=== PATIENT | female | born 1970 | race Caucasian/White ===

== ENCOUNTER → 2017-10-20 18:36 | Outpatient (CLI) | payer OTHER, SELFPAY ==
[2017-10-20 18:37] LABS: Bacteria 0 SEEN /hpf (None Seen); Mucous, Urine 0 SEEN /hpf (<or=2+)
[2017-10-20 19:00] LABS: Color, Urine Yellow (Yellow); Glucose, Dipstick Normal (Normal); Ketone-Dipstick Negative (Negative); Leukocyte Esterase-Dipstick 500 /ul (Negative); Nitrite-Dipstick Positive (Negative); Occult Blood-Urine 50 /ul (Negative); Protein-Dipstick 15 mg/dl (Negative); Urine Clarity Clear (Clear); Urine Urobilinogen 1 mg/dl (Normal)
[2017-10-20 19:01] LABS: Urine Bilirubin Dipstick 1 mg/dL (Negative)
[2017-10-20 19:05] LABS: Red Blood Cells-Urine 0-5 SEEN /hpf (0-5); Squamous Epithelial Cells - UA 0-5 SEEN /hpf (5-10); White Blood Cells 5-10 SEEN /hpf (0-5)
[2017-10-20 19:07] LABS: Renal Epithelial Cells 0-5 SEEN /hpf (0-5)
== END ==
PROVIDERS: Visit Provider Physician Assistant Surgical
DX: N30.00 Acute cystitis without hematuria (principal)
CPT/HCPCS: 81001; 87086; 87088; 87186

== ENCOUNTER → 2017-12-08 16:19 | Outpatient (CLI) | payer OTHER, SELFPAY | PROVIDERS: Visit Provider Physician Assistant Surgical | DX: R35.0 Frequency of micturition (principal) | CPT/HCPCS: 87086; 87088; 87186 ==

== ENCOUNTER → 2018-07-28 15:10 | Outpatient (CLI) | payer OTHER, SELFPAY ==
[2018-07-27 17:01] VITALS: BMI 25.9
--- OUTSIDE RECORDS SUMMARY | 2018-09-13 20:37 | XMS RPT_ITS ---
:1970 Author Organization OH[facility] Care Team Providers Name Role Phone Guanakito Howell Attending Unavailable Primay Care Physicia, No Referring Unavailable Dante, Guanakito Attending Unavailable Dante, Guanakito Referring Unavailable Primay Care Physicia, No Primary Care Unavailable DOCTOR, OUT OF TOWN Attending Unavailable Francesco, Nesha Primary Care Unavailable Dante, Guanakito Attending Unavailable Francesco, Nesha Referring Unavailable Francesco, Nesha Primary Care Unavailable Dante, Guanakito Attending Unavailable Dante, Guanakito Referring Unavailable Dante, Guanakito Attending Unavailable Dante, Guanakito Attending Unavailable Dante, Guanakito Referring Unavailable Primay Care Physicia, No Primary Care Unavailable Sosa, Tamar Attending Unavailable Primay Care Physicia, No Referring Unavailable PROBLEMS PROBLEMS DATE TYPE CONDITION / CODE ATTENDING STATUS SOURCE 07/28/2018 Unknown J02.9 - Acute Guanakito Howell Active [place] pharyngitis, Community unspecified / Hospital J02.9(ICD-10) Repository 07/11/2018 Unknown J32.9 - Chronic Sosa, Active [place] sinusitis, [facility] unspecified / Hospital J32.9(ICD-10) Repository 07/11/2018 Unknown B96.89 - Other Sosa, Active [place] specified [facility] bacterial agents Hospital as the cause of Repository diseases classified elsewhere / B96.89(ICD-10) 07/11/2018 Unknown J30.9 - Allergic Sosa, Active [place] rhinitis, [facility] unspecified / Hospital J30.9(ICD-10) Repository 12/08/2017 Unknown R35.0 - Frequency Guanakiot Howell Active [place] of micturition / Community R35.0(ICD-10) Hospital Repository 11/06/2017 Unknown N30.00 - Acute Guanakito Howell Active [place] cystitis without Community hematuria / Hospital N30.00(ICD-10) Repository 11/06/2017 Unknown N39.0 - Urinary Guanakito Howell Active [place] tract infection, Community site not Hospital specified / Repository N39.0(ICD-10) PROCEDURES PROCEDURES No Procedure Records FoundRESULTS RESULTS URGENT CARE VISIT Observed: 07/28/2018 Status: F Source: [place] REPORT 4:14 PM [facility] REPOSITORY [facility] [address] [place] [address] OFFICE VISIT Date of Service: 07/27/18 MR#: [id number] Acct: [id number] Name: SATURNINO SMITH Rep #: [id number] : 1970 Provider: Guanakito HAMILTON Age/Sex: 48/F Location: [facility] Status: Signed Intake Vital Signs07/27/18 Body Mass Index (BMI) 25.9 07/27/18 Height 5 ft 7 in 07/27/18 Weight: 166 lb 07/27/18 Body Mass Index (BMI) 25.9 Intake Visit Reasons: SORE THROAT Chief Complaint: cough and congestion Performance Test Engineer Required: No Accompanied by: SELF Is patient in pain?: No Allergies codeine Allergy (Severe, Verified 07/27/18 17:01) ABD PAIN cyclobenzaprine [From Flexeril] Allergy (Verified 07/27/18 17:) Unknown Medications multivitamin,an-vvra-lcfkvcwv tablet 1 tab PO QDAY 10/20/17 [History Confirmed 07/11/18] PFSH Medical History Back pain (Acute) Surgical History History of cholecystectomy (Acute) Family History Other Hypertension Social History Smoking Status: Never smoker alcohol intake: never HPI HPI Chief Complaint: cough and congestion Details: SATURNINO SMITH, is a 48 F who presents to the office today for complaint of sore throat for the past 24 hours. 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 She denies any fever, chills, sweats. No nausea, vomiting, diarrhea. No other associated symptoms or alleviating/aggravating factors. ROS Const Constitutional: No fever(s), headache(s), anorexia, chills or abnormal sleep pattern ENT ENT: Positive for sore throat; no headache(s), post nasal drip, ear pain, nasal congestion or nasal discharge Resp Respiratory: No shortness of breath Cardio Cardiology: No irregular heart rhythm or palpitations Gastro GI: No nausea/dyspepsia Neuro Neurology: No headache(s) or behavioral changes Psych Psychiatric: No abnormal sleep pattern, No behavioral changes Exam Const General: cooperative, healthy appearing HENDC Head: normal to inspection Ears: hearing grossly normal bilaterally, TM's normal bilaterally, EAC's normal Nose: external nose normal, nasal discharge clear Mouth: oral mucosae normal Throat: abnormal tonsil bilaterally Resp Effort AND Inspection: normal respiratory effort Auscultation: Bilateral: Clear to Auscultation Cardio Palpation: normal PMI Rate: regular rate Rhythm: regular rhythm Neuro General: CN's II-XI intact bilaterally, alert Psych Appearance: grossly normal Mental Status: mental status grossly normal Results BMSRAPIDSTREPA Office Rapid Strep A Negative Last Edit by Iva Leone on 07/27/18 17:15 Assessment AND Plan Problems 1. Acute pharyngitis, unspecified etiology J02.9 Status Acute Plan Rapid strep test negative today. Advised patient we will send the swab off for culture and notify her of positive results. Encouraged to get plenty of rest, drink lots of clear liquids, and use Tylenol or Ibuprofen (unless contraindicated) for fever and comfort. Patient also educated on other symptomatic management techniques. To be seen in 7-10 days if no improvement; sooner if worsening of symptoms. Patient advised of potential red flags and when appropriate to report to the ED. Patient verbalized understanding and agreement with all the above. Orders Orders: Coding Level of Care Code Off vis,est,level 3 Diagnoses Acute pharyngitis, unspecified etiology J02.9 Pharyngitis/tonsillitis etiology: unspecified etiology 07/28/18 1614 <Electronically signed by Guanakito HAMILTON> Date Guanakito HAMILTON Cosigner Signature: Date (if applicable) CC: Observed: 07/27/2018 Status: F Source: [place] CULTURE, R/O STREP A 4:[address] [facility] REPOSITORY [place] Culture No Streptococcus group A isolated. * This cultures intended use is to screen for Beta Streptococcus A only. All other pathogens and potential pathogens will not be screened for or reported. If a complete workup of all potential pathogens is indicated an order for a routine throat culture is required. Performed By: #### M100.010 #### [facility] [address] [place], [address] URGENT CARE VISIT Observed: 07/11/2018 Status: F Source: [place] REPORT 11:[address] [facility] REPOSITORY [facility] [address] [place] [address] [address] [place] [address] OFFICE VISIT Date of Service: 07/11/18 MR#: [id number] Acct: [id number] Name: SATURNINO SMITH Rep #: [id number] : 1970 Provider: ALFONSO Swan Age/Sex: 48/F Location: [facility] Status: Signed Intake Vital Signs07/11/18 Height 5 ft 7 in Intake Visit Reasons: congestion Chief Complaint: cough and congestion Allergies codeine Allergy (Severe, Verified 12/08/17 07:36) ABD PAIN cyclobenzaprine [From Flexeril] Allergy (Verified 07/11/18 10:29) Unknown Medications multivitamin,mc-xxdf-rujiuiuq tablet 1 tab PO QDAY 10/20/17 [History Confirmed 07/11/18] PFSH Medical History Back pain (Acute) Surgical History History of cholecystectomy (Acute) Family History Other Hypertension Social History Smoking Status: Never smoker alcohol intake: never HPI HPI Chief Complaint: cough and congestion Details: SATURNINO SMITH, is a 48 F who presents to the office today for 5 days of coughing with chest congestion and a tickle in her throat. She had a runny nose a few weeks before then. ?allergies. She has swollen neck glands and a head ache, that increases with coughing. Nasal drainage and PND is green/yellow. Temp has been between 99.5 to 100.2. No body aches. No shortness of breath. She has had bronchitis about once a year. No history or asthma. Nonsmoker. ROS Const Constitutional: Positive for fever(s) and headache(s); no body ache, chills, fatigue, night sweats, change in appetite, weakness, frequent falls or excessive sweating Eyes Eyes: No visual disturbances, light sensitivity, eye pain or change in vision ENT ENT: Positive for dizziness/vertigo (only if blows her nose too hard. ), nasal discharge and headache(s); no ear pain, ear discharge, hearing loss, difficulty swallowing, sore throat or neck pain Resp Respiratory: Positive for cough; no chest congestion, hemoptysis, shortness of breath or wheezing Cardio Cardiology: No shortness of breath, irregular heart rhythm, lightheadedness, chest pain at rest, chest pain with exertion, generalized swelling, orthopnea, palpitations or excessive sweating Gastro GI: No difficulty swallowing, abdominal pain, bloating, change in bowel habits, diarrhea, blood in stool, Black,tarry stools, nausea/dyspepsia or vomiting Genitourinary-Female: No burning urination, urinary frequency, urinary urgency, blood in urine or Vaginal Itching Musc Musculoskeletal: Positive for back pain (from working out in the gym); no joint pain, numbness, tingling or neck pain Skin Skin: Positive for itching (watery eyes, and sneezing); no lesions or rash Neuro Neurology: Positive for headache(s); no visual disturbances, numbness, tingling, abnormal speech, confusion, unsteady gait/balance, dizziness, weakness, frequent falls or loss of vision Psych Psychiatric: No change in appetite, No confusion, No anxiety, No depression Endo Endocrine: No fatigue, cold intolerance, excessive sweating, flushing, heat intolerance or increased thirst/drinking Aller/Imm Allergy/Immunologic: Positive for itchy eyes (watery eyes, and sneezing); no wheezing, food intolerance, seasonal allergy symptoms or hives Geoff/Lymp Hematologic/Lymphatic: No easy bruising Exam Const General: cooperative, no acute distress Orientation: alert, oriented x3 [facility]: normal to inspection, normocephalic Ears: hearing grossly normal bilaterally, external ears normal, TM normal on the right, no periauricular adenopathy, EAC's normal, TM abnormal (left ) dull and wth effusion Nose: mucous membranes and turbinates abnormal boggy and erythematous, nasal discharge purulent and other (white) Face and sinus: sinuses nontender Mouth: oral mucosae normal, oropharynx normal, tongue normal Teeth and gingiva: dentition normal, gingiva normal Throat: posterior oropharynx abnormal, postnasal drainage (white) Eyes General: appearance normal, both eyes and all related structures Visual Be: normal visual be by confrontation Eyelids: eyelids normal Conjunctivae: conjunctivae normal Sclera: sclerae normal Pupils: PERRL EOM: EOM intact bilaterally Direct ophthalmoscopy: normal light reflex, no photophobia Neck Neck: normal visual inspection, no meningeal signs, supple, no lymphadenopathy Neck mass: No Thyroid: thyroid normal Carotids: no bruits Lymphatic: no lymphadenopathy noted Chest Chest palpation AND inspection: normal inspection of the chest Resp Effort AND Inspection: normal respiratory effort, able to speak in complete sentences, symmetric chest movement, no audible wheezes, not labored, no respiratory distress Auscultation: Bilateral: Clear to Auscultation Cardio Rate: regular rate Rhythm: regular rhythm Heart Sounds: S1 normal, S2 normal GI Inspection: normal to inspection Auscultation: normal bowel sounds Palpation: soft, no hepatosplenomegaly, no pulsatile masses Musc Musculoskeletal: No joint tenderness or joint redness Skin General: no rashes or lesions noted Neuro General: alert, oriented x3, moves all extremities Cognition: normal cognition Speech: speech normal Gait: normal gait Motor: muscle tone normal throughout Sensory Exam: no sensory deficits noted Extrem General: normal to inspection Psych Appearance: grossly normal, well kempt Mental Status: mental status grossly normal Affect: normal affect Speech and Movement: speech and movement normal Attitude: cooperative Thought Process: normal Thought Content: normal Judgment: judgment good Assessment AND Plan Problems 1. Sinusitis, bacterial J32.9; B96.89 2. Allergic rhinitis due to allergen J30.9 Plan Amoxil 875mg bid x 10 days, Astelin nasal spray, and Prednisone 30mg x 2 days called to Lisa Levine, \. To ER if develops high fever, SOB F/u with PCP if symptoms persist more than 3-5 more days. Coding Level of Care Code Off vis,est,level 3 Diagnoses Sinusitis, bacterial J32.9; B96.89 Allergic rhinitis due to allergen J30.9 07/11/18 1106 <Electronically signed by Tamar HAMILTON> Date Tamar Urrutia Signature: Date (if applicable) CC: Observed: 12/08/2017 Status: F Source: [place] CULTURE, URINE 5:[address] [facility] REPOSITORY Urine Culture ORGANISM 1: Presumptive E. coli [place] Count >100,000 Presumptive E. coli: REACTION Amoxacillin/Clavulanic Acid $ <=2 S Ampicillin $ <=2 S Ampicillin/Sulbactam $ <=2 S Cefazolin $ <=4 S Cefepime $ <=1 S Ceftriaxone $ <=1 S Ciprofloxacin $ <=0.25 S ESBL - Ertapenim $$$ <=0.5 S Gentamicin $ <=1 S Imipenem *NF <=0.25 S Levofloxacin $ <=0.12 S Nitrofurantoin $ <=16 S Piperacillin/Tazobactam $$ <=4 S Tobramycin $ <=1 S Trimethoprim/Sulfametho $ <=20 S (NF) indicates non-formulary drug at [facility]. Approval by Infectious Disease Specialist required before non-formulary drugs may be ordered and/or dispensed. Performed By: #### M100.0650 #### [facility] [address] [place], [place], [address] URGENT CARE VISIT Observed: 12/08/2017 Status: F Source: [place] REPORT 8:[address] [facility] REPOSITORY [facility] [address] [place] [id number] OFFICE VISIT Date of Service: 12/08/17 MR#: [id number] Acct: [id number] Name: SATURNINO SMITH Rep #: [id number] : 1970 Provider: Guanakito HAMILTON Age/Sex: 47/F Location: [facility] Status: Signed Intake Vital Signs12/08/17 Height 5 ft 7 in 12/08/17 Weight: 158 lb 12/08/17 Body Mass Index (BMI) 24.7 12/08/17 Blood Pressure 114/68 Intake Visit Reasons: Urinary tract infection Performance Test Engineer Required: No Is patient in pain?: No Allergies codeine Allergy (Severe, Verified 12/08/17 07:36) ABD PAIN Medications multivitamin,vo-cngz-cbwbtovh tablet 1 tab PO QDAY 10/20/17 [History Confirmed 12/08/17] PFSH Social History Smoking Status: Never smoker alcohol intake: never HPI HPI Details: SATURNINO SMITH, is a 47 F who presents to the office today for concern for UTI. Patient states that 2 days ago she started have burning and increased frequency of urination. She does report having a UTI 6 weeks ago with similar type symptoms. She has had no hematuria or loss of bowel or bladder. No fever, chills, sweats. No nausea, vomiting, diarrhea. No other associated symptoms or alleviating/aggravating factors. ROS Const Constitutional: No body ache, chills or fever(s) Resp Respiratory: No shortness of breath Cardio Cardiology: No lightheadedness, palpitations or irregular heart rhythm Gastro GI: No abdominal pain Genitourinary-Female: Positive for burning urination, painful urination and urinary frequency; no pelvic pain, painful intercourse or blood in urine Neuro Neurology: No confusion or behavioral changes Psych Psychiatric: No confusion, No behavioral changes Exam Const General: cooperative, healthy appearing Resp Effort AND Inspection: normal respiratory effort Auscultation: Bilateral: Clear to Auscultation Cardio Rate: regular rate Rhythm: regular rhythm GI Auscultation: normal bowel sounds General: No CVA tenderness Psych Appearance: grossly normal Mental Status: mental status grossly normal Results BMSUA Office Urine Color Yellow Last Edit by Iva Leone on 12/08/17 07:38 Assessment AND Plan 1. Acute cystitis without hematuria N30.00 Plan Macrobid as prescribed today. Encouraged to get plenty of rest, drink lots of clear liquids, and use Tylenol or Ibuprofen (unless contraindicated) for fever and comfort. Patient also educated on other symptomatic management techniques. To be seen in 7-10 days if no improvement; sooner if worsening of symptoms. Patient advised of potential red flags when appropriate report to the ED. Patient verbalized understanding of all the above. This note was generated with [employer]ation software. It may contain incorrect words, spelling, and punctuation that were not noted in checking the note before signing. Plan Detail Other Orders Orders: Coding Level of Care Code Off vis,est,level 3 Diagnoses Acute cystitis without hematuria N30.00 Urinary tract infection type: acute cystitis Hematuria presence: without hematuria 12/08/17 0800 <Electronically signed by Guanakito HAMILTON> Date Guanakito HAMILTON Cosigner Signature: Date (if applicable) CC: URINALYSIS, COMPLETE Collected: 10/20/2017 Status: F Source: [facility] 6:[address] [facility] REPOSITORY Order Comment: How was Urine Obtained? WOMENS [employer]LEY[employer] COACH TO SPECIFY TYPE CODE TESTS RESULT OUT OF RANGE REFERENCE UNITS LAB L400.3000 Yellow COLOR Normal Yellow LAB L400.3050 Clear Normal CLARITY Clear LAB L400.3200 Normal mg/dl Normal GLUCOSE, UR Normal LAB L400.3300 Negative mg/dL High BILIRUBIN URINE 1 Result Comment: COLOR OF URINE MAY AFFECT DIPSTICK RESULTS. LAB L400.3400 Negative mg/dl Normal KETONE UR Negative LAB L400.3465 1.002-1.030 Normal SP.GR. DIPSTX 1.010 LAB L400.3550 5.0 - 8.0 pH Normal UR 8.0 LAB L400.3600 Negative mg/dl High PROT DIPSTX 15 LAB L400.3700 Normal mg/dl High UROBILI 1 LAB L400.3750 Negative High NITRITE UR Positive LAB L400.3780 Negative /ul High OCCULT 50 BLOOD-UR LAB L400.3800 Negative /ul High LEUK ESTERASE 500 LAB L400.4050 0-5 /hpf Normal WBC 5-10 SEEN LAB L400.4100 0-5 /hpf Normal RBC-UA 0-5 SEEN LAB L400.4150 5-10 /hpf Normal SQUAM EPI 0-5 SEEN LAB L400.4300 None Seen /hpf Normal BACTERIA 0 SEEN LAB L400.4350 <or=2+ /hpf Normal MUCUS, URINE 0 SEEN LAB L400.4250 0-5 /hpf Normal RENAL EPI 0-5 SEEN Performed By: #### L400.0001, M100.0650 #### [facility] [address] [place], [address] Observed: 10/20/2017 Status: F Source: [place] CULTURE, URINE 6:[address] [facility] REPOSITORY Urine Culture ORGANISM 1: Presumptive E. coli [place] Count >100,000 Presumptive E. coli: REACTION Amoxacillin/Clavulanic Acid $ <=2 S Ampicillin $ <=2 S Ampicillin/Sulbactam $ <=2 S Cefazolin $ <=4 S Cefepime $ <=1 S Ceftriaxone $ <=1 S Ciprofloxacin $ <=0.25 S ESBL - Ertapenim $$$ <=0.5 S Gentamicin $ <=1 S Imipenem *NF <=0.25 S Levofloxacin $ <=0.12 S Nitrofurantoin $ <=16 S Piperacillin/Tazobactam $$ <=4 S Tobramycin $ <=1 S Trimethoprim/Sulfametho $ <=20 S (NF) indicates non-formulary drug at [facility]. Approval by Infectious Disease Specialist required before non-formulary drugs may be ordered and/or dispensed. Performed By: #### L400.0001, M100.0650 #### [facility] [address] [place], [place], [address] URGENT CARE VISIT Observed: 10/20/2017 Status: F Source: [facility] REPORT 7:[address] [facility] REPOSITORY [facility] [address] [place] [address] [address] [place] [address] OFFICE VISIT Date of Service: 10/20/17 MR#: [id number] Acct: [id number] Name: SATURNINO SMITH Rep #: [id number] : 1970 Provider: Guanakito HAMILTON Age/Sex: 47/F Location: [facility] Status: Signed Intake Vital Signs10/20/17 Height 5 ft 7 in 10/20/17 Weight: 158 lb 10/20/17 Body Mass Index (BMI) 24.7 10/20/17 Blood Pressure 118/76 Intake Visit Reasons: Urinary tract infection Performance Test Engineer Required: No Is patient in pain?: No Allergies codeine Allergy (Severe, Verified 10/20/17 07:24) ABD PAIN Medications multivitamin,eu-obxj-mdlfjfsm tablet 1 tab PO QDAY 10/20/17 [History Confirmed 10/20/17] nitrofurantoin monohydrate/macrocrystals 100 mg capsule 1 cap PO Q12H 7 Days #14 cap 10/20/17 [Rx Confirmed 10/20/17] HPI HPI Details: SATURNINO SMITH, is a 47 F who presents to the office today for urinary frequency and dysuria for the past 2 days. Patient states that she awoke 2 days ago with dysuria and has since had increased urinary frequency/urgency. She denies any hematuria or loss of bowel/bladder. No fever, chills, sweats. No nausea, vomiting, diarrhea. Patient has taken Azo for the dysuria which she states has helped. No other associated symptoms or alleviating/aggravating factors. ROS Const Constitutional: No body ache, chills or fever(s) Resp Respiratory: No shortness of breath Cardio Cardiology: No lightheadedness, palpitations or irregular heart rhythm Gastro GI: No abdominal pain Genitourinary-Female: Positive for burning urination, painful urination and urinary frequency; no pelvic pain, painful intercourse or blood in urine Neuro Neurology: No confusion or behavioral changes Psych Psychiatric: No confusion, No behavioral changes Exam Const General: cooperative, healthy appearing Resp Effort AND Inspection: normal respiratory effort Auscultation: Bilateral: Clear to Auscultation Cardio Rate: regular rate Rhythm: regular rhythm GI Auscultation: normal bowel sounds General: No CVA tenderness Neuro General: alert, CN's II-XI intact bilaterally Psych Appearance: grossly normal Mental Status: mental status grossly normal Assessment AND Plan 1. Acute cystitis without hematuria N30.00 Status Acute Plan Encouraged to get plenty of rest, drink lots of clear liquids, and use Tylenol or Ibuprofen (unless contraindicated) for fever and comfort. Patient also educated on other symptomatic management techniques. To be seen in 7-10 days if no improvement; sooner if worsening of symptoms. Patient advised of potential red flags when appropriate report to the ED. Patient verbalized understanding of all the above. This note was generated with [employer]ation software. It may contain incorrect words, spelling, and punctuation that were not noted in checking the note before signing. Orders Orders: Plan Detail Other Orders Orders: Other Medications New: nitrofurantoin monohyd/m-cryst 100 mg administer with a meal1 cap PO Q12H 7 days N39.0 /food; swallow whole; do not open, crush, dissolve , or chew Coding Level of Care Code Off vis,est,level 3 Diagnoses Acute cystitis without hematuria N30.00 Urinary tract infection type: acute cystitis Hematuria presence: without hematuria 10/20/17 0737 <Electronically signed by Guanakito HAMILTON> Date Guanakito HAMILTON Cosigner Signature: Date (if applicable) CC: ALLERGIES ALLERGIES DATE TYPE / CODE NAME / CODE REACTION SEVERITY SOURCE 07/27/2018 Drug codeine/F006 ABD PAIN SV [facility] Allergy/4160 130294([facility]NOR Hospital 06761(SNOMED M) Repository CT) 07/27/2018 Drug cyclobenzapr Unknown Unknown [facility] Allergy/4160 ine/[id number] Hospital 22780(SNOMED 80(RXNORM) Repository CT) ENCOUNTERS ENCOUNTERS ADMIT/DISCHARGE ACCOUNT ADMITTING ENCOUNTER LOCATION SOURCE NUMBER CLASS 07/28/2018 [id number] Ambulatory [place] 1 [facility] ing:LABSPEC Repository 07/27/2018/ [id number] Ambulatory BMSBuilding:B [place] 8 7 [place] Repository 07/11/2018/ [id number] Ambulatory BMSBuilding:B [place] 8 0 [place] Repository 02/26/2018 [id number] Ambulatory [place] 9 [facility] ing:MASS Repository 12/08/2017 [id number] Ambulatory [facility] 7 [facility] ing:LABSPEC Repository 12/08/2017/ [id number] Ambulatory BMSBuilding:B [place] 8 4 [place] Repository 10/20/2017 [id number] Ambulatory [place] 9 [facility] ing:LABSPEC Repository 10/20/2017/ [id number] Ambulatory BMSBuilding:B [place] 8 1 [place] Repository PAYERS PAYERS ENCOUNTER GUARANTOR PAYER SUBSCRIBER SOURCE 07/28/2018 LJ Leone Primary SATURNINOASHLIE [place] [id number] Insurance:MEDICAL RATLIFFDOB: [facility] [id number] Number: Repository [address]Nfb: [phone] [id number] [id number] () Date:[id number] [place] [id number]: 07/28/2018 Secondary NOT GIVENUNK [place] Insurance:SELF PAY [facility] Number: Effective Repository Date:2018-07-28 07/27/2018 Lj Leone Primary SATURNINOASHLIE Levine [id number] Insurance:MEDICAL RATLIFFDOB: [facility] [id number] Number: Repository [id number]: 330 [id number] () Date:[id number] [address] [address]QN: 07/27/2018 Secondary NOT GIVENUNK [place] Insurance:SELF PAY [facility] Number: Effective Repository Date:2018-07-27 07/11/2018 Lj Leone Primary SATURNINOASHLIE Levine [id number] Insurance:MEDICAL RATLIFFDOB: [facility] [id number] Number: Repository [id number]: 330 [id number] [phone] (HP) Date:2239-13-90VY [address] [address]CS: 07/11/2018 Secondary NOT GIVENUNK [place] Insurance:SELF PAY [facility] Number: Effective Repository Date:2018-07-11 02/26/2018 Lj P Primary NOT GIVENUNK [place] [id number] Insurance:SELF PAY [place], [place] Number: Effective Repository [id number]: ([phone] Date:[phone] (HP) 12/08/2017 Lj P Primary SATURNINO Abner [id number] Insurance:MEDICAL RATLIFFDOB: [facility] [id number] Number: Repository [id number]: 330 [id number] [phone] (HP) Date:[id number] [address] [address]VL: 12/08/2017 Secondary NOT GIVENUNK Abner Insurance:SELF PAY [facility] Number: Effective Repository Date:2017-12-08 12/08/2017 Lj P Primary SATURNINO [place] [id number] Insurance:MEDICAL RATLIFFDOB: [facility] [id number] Number: Repository [id number]: 330 [id number] [phone] (HP) Date:[id number] [address] [address]LB: 12/08/2017 Secondary NOT GIVENUNK [place] Insurance:SELF PAY [facility] Number: Effective Repository Date:2017-12-08 10/20/2017 Lj P Primary SATURNINO [place] [id number] Insurance:MEDICAL RATLIFFDOB: [facility] [id number] Number: Repository [id number]: 330 [id number] [phone] (HP) Date:[id number] [address] [address]GY: 10/20/2017 Secondary NOT GIVENUNK Abner Insurance:SELF PAY [facility] Number: Effective Repository Date:2017-10-20 10/20/2017 Lj Leone Primary SATURNINO [place] [id number] Insurance:MEDICAL RATLIFFDOB: [facility] [id number] Number: Repository [id number]: [phone] [id number] [phone] () Date:3947-76-47FV [address] [place] [address]HF: 10/20/2017 Secondary NOT GIVENUNK [place] Insurance:SELF PAY [facility] Number: Effective Repository Date:2017-10-20
== END ==
PROVIDERS: Referring Provider Physician Assistant Surgical; Visit Provider Physician Assistant Surgical
DX: J02.9 Acute pharyngitis, unspecified (principal)
CPT/HCPCS: 87081

== ENCOUNTER 2024-01-18 08:01 | Day surgery (SDC) | payer OTHER, SELFPAY ==
--- NOTE | 2024-01-17 22:24 | HP.PCM_ITS ---
History and Physical Date of Admission: 01/18/24 HISTORY OF PRESENT ILLNESS 53 year old female presents for evaluation of a soft tissue mass on her central forehead that she first noticed a year ago. It has enlarged in size over the last several months. She denies trauma. She denies fever. She denies recent infection. She denies headaches. She states that it is a little painful when bumped. She comes in today for further evaluation and treatment. PAST MEDICAL HISTORY Acute conjunctivitis, left eye Acute pharyngitis, unspecified Back pain Dysesthesia Earache, right Elective procedure for unacceptable cosmetic appearance Glabellar wrinkles Localized swelling, mass, and lump of head URI (upper respiratory infection) PAST SURGICAL HISTORY History of cholecystectomy ALLERGIES codeine cyclobenzaprine [From Flexeril] tramadol MEDICATIONS None. FAMILY HISTORY Hypertension SOCIAL HISTORY Smoking Status: Never smoker alcohol intake: never REVIEW OF SYSTEMS General - Denies fever and weight loss. Has a history of fatigue. Eyes - Denies cataracts and glaucoma. She wears glasses. ENT - Denies nasal congestion and sore throat. Endocrine - Denies excessive thirst and urination. History of breast cyst. Skin - Denies skin cancer. Has an enlarging soft tissue mass on her central forehead. Denies family history of skin cancer. Musculoskeletal - Denies joint stiffness, weakness of muscles and joints, and arthritis. States she has some joint pain and back pain. Neuro - History of headaches/migraines. Cardiovascular - Denies chest pain, fatigue, and shortness of breath with exertion. Psych - History of anxiety. Denies depression. Respiratory - Denies chronic cough and shortness of breath. Gastrointestinal - Denies nausea, vomiting, diarrhea, and constipation. History of gallstones and had a cholecystectomy 1998. Hematologic - Denies abnormal bruising and bleeding. Genitourinary - Denies hematuria and urinary frequency. History of urinary tract infections. PHYSICAL EXAMINATION General - Alert and oriented. HEENT - PERRL. EOMI. Throat is clear. On her central forehead is a soft tissue mass that measures 0.4 cm. It is mobile. It has mild tenderness when bumped. No evidence of infection. Has glabellar wrinkles. The glabellar muscles are or iented horizontally. No other suspicious lesions noted. Neck - Supple and non-tender. No cervical adenopathy. No suspicious lesions noted. Lungs- Clear to auscultation. Heart - Regular rate and rhythm. Abdomen - Soft and non distended. Extremities - FROM. No axillary adenopathy. Radial pulses are palpable. No suspicious lesions noted. Neuro - CN II-XII grossly intact. Psych - Normal mood and affect. ASSESSMENT 1. 0.4 cm painful soft tissue mass central forehead. 2. Glabellar wrinkles. PLAN Patient has a painful soft tissue mass central forehead that has increased in size over the past several months. She denies trauma. She denies headaches. She denies recent infection. It is recommended to have this soft tissue mass excised before it enlarges some more and becomes infected. Also as it enlarges, it can cause headaches because of pressure on the underlying muscle. It is common that these soft tissue masses are located in a submuscular location. Surgery can be done under local anesthesia on an outpatient basis. Tissue that is removed will be sent to Pathology for analysis to rule out carcinoma. Patient was informed of the risks and complications of the procedure including alternatives to surgery. These were discussed with the patient personally. Patient voices understanding and wishes to proceed. Potential risks and complications included but not inclusive of bleeding, infection, hematoma, bruising, swelling, loss of sensation to skin, wound breakdown, need for wound care, poor scarring, poor aesthetic outcome, intra operative cardiac or neurologic events, DVT, PE, and reaction to anesthesia. Patient also has some concerns about glabellar wrinkles. Botox will be beneficial in improving the wrinkles in this area. Will discuss it further after the soft tissue mass incision has healed. Assessment & Plan Assessment/Plan (1) Localized swelling, mass, and lump of head: (2) Dysesthesia: (3) Glabellar wrinkles:
[2024-01-18] MEDS: Lactated Ringers 1,000 ML 15 ML IV (08:42)
[2024-01-18 08:43] VITALS: BP 126/88; PULSE 79; RESP 16; TEMP 37.1; O2SAT 98; BMI 25.9
--- NOTE | 2024-01-18 09:30 | TISS_PTH ---
PATIENT: SATURNINO SMITH LOC: [facility] [place] U#:[id number] AGE/SX: 53/F ROOM: RE01/18/[address]: Dr. Mc Hebert MD : 1970 BED: DIS: 01/18/2024 SPEC #: [id number] RECD: 01/18/24 13:05 STATUS: TACOS HAIDER #: [id number] MAE: 01/18/24 09:[address]: Mc Hebert DEPT: SURGICAL PATHOLOGY RECD BY: Moise Phan ENTERED: 01/18/24 13:29 SP TYPE: Tissue Bx OT DR: Trixie Primary Care Phys Tissues: Skin of forehead Procedures: Decalcification bone/plaque Surgery Specimen Level IV HEADER OPERATION: Excision painful soft tissue mass central forehead PRE-OP DIAGNOSIS: Painful soft tissue mass central forehead TISSUE SUBMITTED: Soft tissue mass central forehead MICROSCOPIC DIAGNOSIS Soft tissue mass central forehead, excision: A piece of benign dense fibroconnective tissue, skeletal muscle tissue and adipose tissue. Negative for malignancy. See comment. / 01/20/2024 COMMENT Correlation with clinical findings and appropriate follow up are necessary. MICROSCOPIC DESCRIPTION Slides are reviewed. GROSS DESCRIPTION Received in fixative is one container labeled with the patient's name and designated Soft tissue mass central forehead. The specimen consists of a piece of portillo indurated tissue measuring 0.5 x 0.3 x 0.2cm. The entire specimen is submitted in one cassette after decalcification. / 01/18/2024 TC:5 CPT:28834,73168
[2024-01-18] MEDS: Clindamycin 900 MG/50 ML BAG 75 MG IV (10:47)
[2024-01-18] MEDS: Lidocaine 1% /Epi 1:100 (20ml) 20 ML Vial (11:25)
[2024-01-18] MEDS: Bacitracin 500 UNITS/GM PACKET (11:39)
--- NOTE | 2024-01-18 11:43 | OP.PCM_ITS ---
Problems Associated Problem List Diagnoses (1) Localized swelling, mass, and lump of head: (2) Dysesthesia: (3) Glabellar wrinkles: Report of Operation Date of Procedure: 01/18/24 Pre-Operative Diagnosis: 1. 0.4 cm painful soft tissue mass central forehead. 2. Glabellar wrinkles. Post-Operative Diagnosis: 1. 0.4 cm painful submuscular soft tissue mass central forehead. 2. Glabellar wrinkles. Surgery/Procedure Performed:: Excision 0.4 cm painful submuscular soft tissue mass central forehead with 1.1 cm complex closure. Description of Surgical Findings:: 53 year old female presents for evaluation of a soft tissue mass on her central forehead that she first noticed a year ago. It has enlarged in size over the last several months. She denies trauma. She denies fever. She denies recent infection. She denies headaches. She states that it is a little painful when bumped. She comes in today for further evaluation and treatment. Patient was informed of the risks and complications of the procedure including alternatives to surgery. These were discussed with the patient personally. Patient voices understanding and wishes to proceed. Some of the risks and complications were included in a form from the [employer] [place] [employer]. Potential risks and complications included but not inclusive of bleeding, infection, hematoma, bruising, swelling, loss of sensation to skin, wound breakdown, need for wound care, poor scarring, poor aesthetic outcome, intra operative cardiac or neurologic events, DVT, PE, and reaction to anesthesia. Surgeon: Mc Hebert MD slot floor attendant: None Type of Anesthesia: Local MAC (xylocaine with epinephrine and IV sedation.) Anesthesiologist: Quinn Yanez MD and Nimco Barth CRNA Specimen's removed: Painful submuscular mass central forehead to Pathology. Drains: none. Estimated Blood Loss (mL): 2. Description of Procedure: Patient was taken to OR in supine position and was given IV sedation. The forehead was prepped and draped in the usual fashion. SCD's were placed for DVT prophylaxis. Perioperative antibiotics were given intravenously. The soft tissue mass central forehead was infiltrated with xylocaine and epinephrine. After waiting 5 minutes for the anesthetic to take effect, I made a horizontal incision over the soft tissue mass. I dissected into the subcutaneous tissue. Frontalis muscle was seen and a small bulge was noted underneath the muscle. I the muscle in a longitudinal fashion which exposed the soft tissue mass. The mass was dissected at the level of the periosteum. The mass was not adherent to the periosteum. After the mass was excised, it was sent to Pathology for analysis to rule out carcinoma. Hemostasis was obtained with electrocautery. The wound was irrigated with saline. The wound was closed in a multilayered complex closure. 5-0 Monocryl figure of eight interrupted sutures were used to approximate the underlying muscle layer. The deep dermis and subcutaneous tissue was approximated with 5-0 Monocryl interrupted sutures. The skin was approximated with 6-0 Prolene simple interrupted sutures. Steri-strips were applied followed by antibiotic ointment and a small Op-site dressing. The length of the complex closure was 1.1 cm. Patient tolerated the procedure well and was sent to PACU in satisfactory condition. Patient will be sent home on antibiotics and pain medication. She will keep her head elevated during the initial postoperative period. Patient will followup in a week for a wound check and for discussion of the pathology report and for removal of the sutures. Grafts/Implants Used: None. Procedure Start Time: 11:13 Procedure Stop Time: 11:40 Complications None. Admit VTE Documentation VTE Present on Admission: No VTE Mechan Device Prophylaxis: SCD's VTE Pharm Prophylaxis ordered?: No Addendum Addendum: Surgery Charges CPT - 58451 ICD-10 - R22.0, R20.8, L98.8 81709 R22.0, R20.8, L98.8
--- NOTE | 2024-01-18 11:46 | PCM.DC ---
Discharge Instructions Diet Discharge Diet: No restrictions Activity Discharge Activity: May Drive (when not taking pain medication.), May Shower (in two days.) and - (keep head elevated. no heavy lifting.) May resume sexual activity in: No Restrictions Ice area for (Minutes): 5 (as needed for facial swelling.) Weight Bearing Status: Weight bearing as tolerated Lifting Restrictions: 20. Keep extremity elevated above heart level: - (elevate head.) Dressing / Incision Call your doctor if your incision/area has: Continuous Slow Oozing, Sudden Increased Bleeding, Increased Pain/ Swelling, Increased Redness, Foul Smelling Discharge and Swelling at the incision site Call your doctor if you observe: Fever of 101 or Higher, Coldness, Increased Pain, Shortness of breath, Chest pain, Calf discomfort and Uncontrolled pain Remove Dressing in: 2 days (may cover the incision with a band aid when outside or can leave the steri-strips exposed. may remove the steri-strips if they start to loosen.) Cleanse incision/area with: Soap & Water (may get the incision wet in the shower in two days.) Follow Up Care Please Follow Up With: Mc Hebert MD When: one week. Test Results: Test results from this visit will be discussed in further detail at your follow-up appointment, if applicable. Discharge Plan Admission Primary Reason for Your Visit: excision painful submuscular soft tissue mass central forehead Attending Provider: Mc Hebert Primary Care Provider: Care Physician,No Primary Instructions Print Language: Kiswahili Discharge Orders/Prescriptions Prescriptions: New clindamycin HCl [Cleocin HCl] 300 mg capsule 300 mg PO TID Qty: 12 0RF L.acidoph,saliva-B.bif-S.therm [Acidophilus Probiotic Blend] 175 mg capsule 1 cap PO DAILY Qty: 10 0RF oxycodone-acetaminophen [Percocet] 5-325 mg tablet 1 tab PO TID PRN (Reason: pain (scale score 7-10)) 5 Days Qty: 15 0RF Rx Instructions: 15 tabs (fifteen) Continued multivitamin,bs-tfav-wgtxnkyv [Complete Multivitamin] tablet 1 tab PO QDAY escitalopram oxalate [Lexapro] 20 mg tablet 20 mg PO DAILY magnesium 250 mg tablet 500 mg PO DAILY calcium carb and citrate-vitD3 [Citracal-D3 Slow Release] 600 mg-12.5 mcg (500 unit) tablet extended release 1 tab PO DAILY jk-9-mqo-epa-fish oil-vit D3 [Fish Oil-Vit D3] 300-1,000-1,000 mg-mg-unit capsule 1 cap PO DAILY evening primrose oil 500 mg capsule 1,000 mg PO DAILY Rx Instructions: give with meal/snack Referrals / Follow Up: Mc Hebert MD [Med Staff - Active Staff] - In 1 Week Care Physician,No Primary [Primary Care Provider] - Disposition Disposition (needs filled in before D/C Order can be placed): Home, Self Care
[2024-01-18 11:50] VITALS: BP 115/75; BP 126/88; PULSE 65; RESP 18; TEMP 36.4; O2SAT 98
[2024-01-18 11:55] VITALS: BP 119/78; BP 126/88; PULSE 63; RESP 16; O2SAT 98
[2024-01-18 12:00] VITALS: BP 119/80; BP 126/88; PULSE 64; RESP 16; TEMP 36.9; O2SAT 97
[2024-01-18 12:26] VITALS: BP 126/88
== END 2024-01-18 12:45 | disposition home or self-care (01) ==
LOC: SDC 08:08 → AC 08:09
PROVIDERS: Referring Provider Surgery; Visit Provider Surgery
PROC: (CPT 21013; principal; 2024-01-18 09:15)
DX: R22.0 Localized swelling, mass and lump, head (principal); F41.9 Anxiety disorder, unspecified; Z79.899 Other long term (current) drug therapy
CPT/HCPCS: 21013; 13131; 00300; 88305; 88311

== ENCOUNTER 2025-08-03 18:02 | Emergency (ER) | payer OTHER, SELFPAY ==
[2025-08-03 18:04] VITALS: BP 167/80; PULSE 105; RESP 16; TEMP 36.6; O2SAT 98; BMI 23.8
[2025-08-03 18:43] VITALS: BP 142/91; PULSE 94; RESP 16; O2SAT 98
--- NOTE | 2025-08-03 18:54 | EKG12_ITS ---
Test Reason : palps Blood Pressure : */* mmHG Vent. Rate : 90 BPM Atrial Rate : 90 BPM P-R Int : 142 ms QRS Dur : 86 ms QT Int : 374 ms P-R-T Axes : 74 84 -9 degrees QTcB Int : 457 ms Normal sinus rhythm Right atrial enlargement Cannot rule out Inferior infarct , age undetermined T wave abnormality, consider lateral ischemia Abnormal ECG Confirmed by Maik Fowler ([id number]), editor dictionary WO[employer] LOVE ([id number]) on 08/04/2025 10:38:50 AM Referred By: Confirmed By: Maik Fowler
--- NOTE | 2025-08-03 18:55 | EDS_ITS ---
HPI History of Present Illness Chief Complaint: Anxiety Informant: patient and spouse/S.O. Narrative Narrative: 55-year-old female presenting to the emergency room with palpitations nausea and not feeling well. Patient states she got up this morning. She did take a couple Excedrin. She did [employer] pizza for lunch. She states that shortly after she began to feel unwell. She states a little bit of nausea this felt some palpitations with her heart racing. She states she does not have body aches or fever. No significant cough. No diarrhea. She states that she has had anxiety in the past but not for a long time. She states she did not sleep well last night despite taking some trazodone. She is also on a GLP-1. Patient notes no rashes. She denies any pain. No DVT PE risk factors. PFSH PFS Medical History Wears glasses Anxiety Dysesthesia Localized swelling, mass, and lump of head Glabellar wrinkles Back pain Home Medications ?Medication ?Instructions ?Recorded ?Last Taken ?Type semaglutide (weight loss) 0.5 0.5 mg subcut QWEEK 12/0907/30/25 History mg/0.5 mL subcutaneous pen injector trazodone 50 mg tablet 25 mg (1/2 x 50 mg) PO QHS P RN 07/20/25 08/02/25 Rx insomnia #30 tabs zdwxiad-yhstiijjflwme-ymtghrqe 250 2 tab PO Q6H PRN pa in 08/03/25 08/03/25 History mg-250 mg-65 mg tablet (Excedrin Extra Strength) lorazepam 0.5 mg tablet (Ativan) 0.5 mg PO BID PRN anx iety #6 tabs 08/03/25 Unknown Rx ondansetron 4 mg disintegrating 4 mg PO Q6H PRN PRN Na usea #15 tabs 08/03/25 Unknown Rx tablet Allergy/AdvReac Type Severity Reaction Status Date / Time codeine Allergy Severe ABD PAIN Verified 08/03/25 18:05 cyclobenzaprine (From Allergy Unknown Verified 08/03/25 18:05 Flexeril) tramadol Allergy PT UNABLE Verified 08/03/25 18:05 TO RESPOND-NEEDS F/U Family History Father Multiple myeloma Hypertension Mother Hypertension Surgical History Elective procedure for unacceptable cosmetic appearance History of excision of mass History of cholecystectomy Social History adopted: No household members: spouse current occupational status: employed 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 current occupational exposures/hazards: No Smoking Status: Never smoker alcohol intake: never substance use type: does not use what type of physical activity do you participate in: none seatbelt use: always do you feel safe at home: Yes ROS ROS ED Constitutional Constitutional ED: Reports chills; Denies fever(s) or weight loss Eyes Eyes: Denies change in vision or diplopia ENT ENT ED: Denies ear pain, rhinorrhea or sore throat Cardiovascular Cardiovascular: Reports palpitations and racing heartbeat; Denies chest pain or orthopnea Respiratory/Chest Respiratory/Chest: Denies cough, dyspnea or orthopnea Gastrointestinal Gastrointestinal: Reports nausea; Denies abdominal pain, diarrhea or vomiting Genitourinary Genitourinary ED: Denies dysuria, hematuria or urinary frequency Musculoskeletal Musculoskeletal: Denies arthralgias or myalgias Integumentary Denies abscess or rash Neurologic Neurologic: Denies headache(s) or weakness Psychiatric Psychiatric: Denies anxiety, depression, suicidal ideation or suicidal thoughts Endocrine Endocrinology: Denies polydipsia, polyphagia or polyuria Allergic/Immunologic Allergic/Immunologic ED: Denies mouth swelling, tongue swelling or urticaria EXAM Physical Exam Const Vital Signs: 08/03/25 18:04 08/03/25 18:35 08/03/25 18:43 Temperature 97.9 F Temperature Source Temporal Pulse Rate 105 H 94 Respiratory Rate 16 16 Respiratory Effort Normal Non-Labored Blood Pressure 167/80 H 142/91 H Blood Pressure Mean 109 108 Pulse Ox 98 98 Oxygen Delivery Method Room Air Room Air 08/03/25 20:49 08/03/25 20:50 08/03/25 21:15 Temperature 97.9 F Temperature Source Pulse Rate 89 93 Respiratory Rate 18 16 Respiratory Effort Blood Pressure 157/105 H 131/89 H Blood Pressure Mean 122 103 Pulse Ox 100 98 Oxygen Delivery Method Room Air Positive well nourished and well developed General Appearance ED: well developed and NAD HEENT Reports normocephalic, head/scalp atraumatic and moist mucous membranes Eyes PERRL and EOMs intact bilaterally Neck no lymphadenopathy, supple and no JVD Resp normal respiratory effort and clear to auscultation bilaterally Cardio regular rate, regular rhythm and no murmurs Rate: tachycardic GI normal to inspection, nondistended, normoactive bowel sounds and non-tender Palpation: soft Back/Spine no CVA tenderness and normal ROM Extremity normal to inspection General Extremety ED: Negative for edema General Extremity: Negative for edema Neuro oriented x3 and CN's II-XII intact bilaterally Sensorium / Orientation: alert Motor Exam: strength 5/5 throughout Psych mental status grossly normal Mood & Affect: anxious; Negative for depressed or tearful Skin no rashes or lesions noted and no wounds MDM MDM MDM Narrative Medical decision making narrative: Differential diagnosis includes but not limited to cardiac dysrhythmia electrolyte abnormalities dehydration anemia thyroid disorder anxiety Patient was observed on monitor has been in normal sinus rhythm. Blood work including TSH electrolytes and magnesium within normal limits. She is not anemic. My independent interpretation of the chest x-ray is normal mediastinal silhouette. Patient received a dose of Zofran and 1/2 mg of Ativan. She states she is feeling substantially better. Difficult to say the exact etiology of the patient's symptoms. Certainly could be panic attack could be beginning of a GI illness as it started after she ate pizza. She is not experiencing any pain. Will write for the patient to have some nausea medication at home as well as a few Ativan. Would recommend PCP follow-up in 1 week. Return if worsening or concerns patient and her are comfortable with this plan History & Record Review Discussion w/independent historian: Patient and Family Lab Data Attestation: I reviewed the patient's lab results. Labs: Laboratory Results - last 24 hr 08/03/25 19:03 WBC 4.9 RBC 4.56 Hgb 13.3 Hct 38.8 MCV 85.1 MCH 29.2 MCHC 34.3 RDW Std Deviation 37.6 RDW Coeff of Jamil 12.2 Plt Count 261 MPV 9.2 Immature Gran % (Auto) 0.200 Neut % (Auto) 66.6 Lymph % (Auto) 27.1 Dundy % (Auto) 5.7 Eos % (Auto) 0.2 Baso % (Auto) 0.2 Absolute Neuts (auto) 3.3 Absolute Lymphs (auto) 1.33 Nucleated RBC % 0 Sodium 139 Potassium 3.9 Chloride 102 Carbon Dioxide 23.8 Anion Gap 13 BUN 11 Creatinine 0.73 Estim Creat Clear Calc 83.68 Est GFR (MDRD) Non-Af 96 BUN/Creatinine Ratio 15.0 Glucose 105 H Calcium 9.9 Magnesium 1.9 Total Bilirubin 0.47 Direct Bilirubin 0.22 AST 23 ALT 10 Alkaline Phosphatase 60 Total Protein 7.2 Albumin 4.4 Globulin 2.9 TSH 2.090 Radiography Diagnostic Testing: Clinical Impression(s) from Imaging Studies Chest X-Ray 08/03/25 19:22 IMPRESSION: No Acute Findings. Reading Location: [facility] EKG Initial EKG: Attestation: I personally reviewed and interpreted this EKG as follows: Comments: Normal sinus rhythm ventricular rate of 90 bpm. No evidence of preexcitation or QT prolongation. Discharge Plan Triage Chief Complaint: Anxiety Other Complaint: Palpitations ED Provider: Maxi Hicks Dx/Rx/DC Orders Clinical Impression: Palpitations, Nausea Instructions: ED Heart Palpitations Prescriptions: New lorazepam [Ativan] 0.5 mg tablet 0.5 mg PO BID PRN (Reason: anxiety) Qty: 6 0RF ondansetron 4 mg tablet,disintegrating 4 mg PO Q6H PRN PRN (Reason: Nausea) Qty: 15 0RF No Action semaglutide (weight loss) 0.5 mg/0.5 mL pen injector 0.5 mg subcut QWEEK Rx Instructions: pt reports she is prescribed this by [facility] trazodone 50 mg tablet 25 mg PO QHS PRN (Reason: insomnia) Qty: 30 0RF loalfup-ubvrpudcoblwt-ijgxljyj [Excedrin Extra Strength] 250-250-65 mg tablet 2 tab PO Q6H PRN (Reason: pain) Primary Care Provider: Jimena Moore Referrals: Jimena Moore MD [Primary Care Provider, Internal Medicine] - 1 Week Care Physician,No Primary [Non-Staff, Medical] Print Language: Albanian Disposition Disposition: Home, Self Care
[2025-08-03 19:12] LABS: Hematocrit 38.8 % (37-47); Hemoglobin 13.3 g/dL (12.0-15.0); Immature Granulocytes Count 0.010 X10^3/uL (0.0-0.0); Mean Corp Hgb Conc 34.3 g/dL (32-36); Mean Corpuscular Volume 85.1 fL (81-99); Mean Platelet Vol. 9.2 fl (6.2-12.0); NRBC Flagged by Analyzer 0 % (0-5); Platelet Count 261 K/mm3 (150-450); RBC Distribution Width CV 12.2 % (11.6-14.6); RBC Distribution Width SD 37.6 fl (35.1-43.9); Red Blood Count 4.56 M/mm3 (4.2-5.4); White Blood Count 4.9 K/mm3 (4.4-11.0)
--- NOTE | 2025-08-03 19:22 | RAD_ITS ---
PROCEDURE: CHEST 1 VIEW (PORTABLE) 08/03/2025 REASON FOR EXAM: PALPITATIONS TECHNIQUE: Frontal view of the chest. FINDINGS: The heart is normal in size. The lungs are clear. No acute osseous abnormalities. RAD/Chest 1 View (Portable) IMPRESSION: No Acute Findings. Reading [facility] [place]
[2025-08-03 19:43] LABS: AST(SGOT) 23 U/L (<=31); Alanine Aminotransfer ALT/SGPT 10 U/L (<=34); Albumin, Serum 4.4 g/dL (3.5-5.0); Alkaline Phosphatase 60 U/L (35-104); Anion Gap 13 (5-15); BUN 11 mg/dL (4-19); BUN/Creat Ratio 15.0 RATIO (10-20); Bilirubin, Direct 0.22 mg/dL (0.00-0.30); Calcium,Total 9.9 mg/dL (7.6-11.0); Carbon Dioxide 23.8 mmol/L (21.0-32.0); Chloride 102 mmol/L (98-108); Estimated Creatinine Clearance 83.68 ml/min (50-250); Globulin 2.9 g/dL (2.2-4.2); Glucose 105 mg/dL (70-99); Magnesium 1.9 mg/dL (1.5-2.2); Potassium 3.9 mmol/L (3.3-5.1)
[2025-08-03 20:49] VITALS: PULSE 89; RESP 18; O2SAT 100
[2025-08-03 20:50] VITALS: BP 157/105
[2025-08-03 21:15] VITALS: BP 131/89; PULSE 93; RESP 16; TEMP 36.6; O2SAT 98
== END 2025-08-03 21:38 | disposition home or self-care (01) ==
PROVIDERS: Emergency Provider Emergency Medicine; PCP Internal Medicine; Visit Provider Emergency Medicine
DX: R00.2 Palpitations (principal); R11.0 Nausea
CPT/HCPCS: 71045; 80048; 80076; 83735; 84443; 85025; 93005; 96374; 96375; 99285; A4216; J2405